=== PATIENT | male | born 1960 | race Native Hawaiian/Other Pacific Islander ===

== ENCOUNTER 2016-07-26 07:59 | Emergency (ER) | payer OTHER ==
[2016-07-26] MEDS ORDERED: BENZONATATE 100 MG CAPSULE PO STA (08:42)
[2016-07-26] MEDS ORDERED: guaiFENesin/DEXTROMETHORPHAN 10 ML UDC PO STA (08:42)
[2016-07-26] MEDS ORDERED: BENZONATATE 100 MG CAPSULE PO ONE (08:46)
== END 2016-07-26 09:25 | disposition home or self-care (01) ==
DX: J11.1 Influenza due to unidentified influenza virus with other respiratory manifestations (principal); E03.9 Hypothyroidism, unspecified
CPT/HCPCS: 71020; 99283; A9270

== ENCOUNTER 2023-09-06 11:55 | Emergency (ER) | payer OTHER ==
[2023-09-06 12:28] LABS: BASOPHILS # (AUTO) 0.1 10^3/uL (0.0-0.1); BASOPHILS % (AUTO) 1.1 %; EOSINOPHILS # (AUTO) 0.2 10^3/uL (0.0-0.7); EOSINOPHILS % (AUTO) 2.6 %; HCT - HEMATOCRIT 46.2 % (42.0-52.0); HGB - HEMOGLOBIN 13.6 g/dL (14.0-18.0); LYMPHOCYTES # (AUTO) 1.8 10^3/uL (1.5-3.5); LYMPHOCYTES % (AUTO) 27.3 %; MEAN CORPUSCULAR HEMOGLOBIN 21.6 pg (27.0-31.0); MEAN CORPUSCULAR HGB CONC 29.4 g/dL (32.0-36.0); MEAN CORPUSCULAR VOLUME 73.3 fL (80.0-94.0); MONOCYTES # (AUTO) 0.7 10^3/uL (0.0-1.0); MONOCYTES % (AUTO) 10.2 %; NEUTROPHILS # (AUTO) 3.8 10^3/uL (1.5-6.6); NEUTROPHILS % (AUTO) 58.3 %; PLT - PLATELET COUNT 245 10^3/uL (130-450); RED CELL DISTRIBUTION WIDTH 17.2 % (12.0-15.0); WHITE BLOOD COUNT 6.5 x10^3/uL (4.8-10.8)
[2023-09-06 12:42] LABS: ALBUMIN 4.5 g/dL (3.2-5.5); ALBUMIN/GLOBULIN RATIO 1.3 (1.0-2.2); BILIRUBIN,TOTAL 0.4 mg/dL (0.2-1.0); CALCIUM 9.5 mg/dL (8.5-10.3); CREATININE 1.5 mg/dL (0.6-1.3); POTASSIUM 3.9 mmol/L (3.5-4.5); TOTAL PROTEIN 7.9 g/dL (6.4-8.9)
[2023-09-06 12:51] LABS: TROPONIN I HIGH SENSITIVITY 2.3 ng/L (2.3-19.7)
--- NOTE | 2023-09-06 12:59 | XRAY Report ---
PROCEDURE: Chest 1V INDICATIONS: Chest pain TECHNIQUE: One view of the chest was acquired. COMPARISON: Chest x-ray 07/26/2016 FINDINGS: Surgical changes and devices: None. Lungs and pleura: No pleural effusions or pneumothorax. Lungs are clear. Mediastinum: Mediastinal contours appear normal. Heart size is normal. Bones and chest wall: No suspicious bony lesions. Overlying soft tissues appear unremarkable. IMPRESSION: No acute cardiopulmonary process. Reviewed by: Palmira Ohara MD on 09/06/2023 12:57 PM [facility] Approved by: Palmira Ohara MD on 09/06/2023 12:57 PM [facility] Station ID: [id number]
--- NOTE | 2023-09-06 13:51 | ED Physician Documentation ---
PD HPI CHEST PAIN - Stated complaint Stated Complaint: TIGHT CHEST,SOA - Chief complaint Chief Complaint: Cardiac - History obtained from History obtained from: Patient, Family - History of Present Illness Pain level max: 0 Pain level now: 0 Quality: Tightness Improved by: Nothing Worsened by: No: Exertion, Inspiration, Eating, Movement, Palpation, Position Associated symptoms: No: Shortness of air, Diaphoresis, Nausea, Vomiting, Feeling faint / dizzy, Palpitations - Additional information Additional information: 63-year-old male presents to the emergency department with chest tightness intermittently over the past 3 days. Diagnosed with COVID 12 days ago. Has minimal residual cough. No fevers. No chills. No cardiac history in the past. The tightness does not change with exertion, inspiration, eating, movement, palpation or position. Nothing makes it better or worse. The tightness is described as across the chest. Nonradiating. Has not had similar symptoms previously. Does not feel short of air, no sweating, no nausea, vomiting, palpitations. No cardiac history. No changes in his medications. No leg swelling. No recent surgeries or immobilizations. Review of Systems Constitutional: denies: Fever, Chills Cardiac: denies: Palpitations Respiratory: denies: Cough GI: denies: Vomiting, Diarrhea PD PAST MEDICAL HISTORY - Past Medical History Past Medical History: Yes Cardiovascular: High cholesterol Respiratory: None Neuro: None Endocrine/Autoimmune: HyPOthyroidism GI: None : None HEENT: None Psych: None Musculoskeletal: None Derm: None - Past Surgical History Past Surgical History: Yes General: Colonoscopy - Present Medications Home Medications: Ambulatory Orders Medication Instructions Recorded Confirmed Levothyroxine [Synthroid] 100 mcg ORAL DAILY 06/15/15 09/06/23 Atorvastatin [Lipitor] 20 mg PO QPM 09/06/23 09/06/23 - Allergies Allergies/Adverse Reactions: Allergies Allergy/AdvReac Type Severity Reaction Status Date / Time No Known Drug Allergies Allergy Verified 09/06/23 12:00 - Social History Does the pt smoke?: No Smoking Status: Never smoker Does the pt drink ETOH?: No Does the pt have substance abuse?: No - Immunizations Immunizations are current?: Yes PD ED PE NORMAL - Vitals Vital signs reviewed: Yes - General General: Alert and oriented X 3, No acute distress - HEENT HEENT: Moist mucous membranes - Neck Neck: Supple, no meningeal sign - Cardiac Cardiac: RRR, Strong equal pulses - Respiratory Respiratory: No respiratory distress, Clear bilaterally - Derm Derm: Warm and dry - Neuro Neuro: Alert and oriented X 3 - Psych Psych: Normal mood, Normal affect Results - Vitals Vitals: Vital Signs - 24 hr 09/06/23 09/06/23 12:01 14:03 Temperature 36.3 C L 36.6 C Heart Rate 64 60 Respiratory 18 16 Rate Blood Pressure 145/91 H 145/88 H O2 Saturation 100 97 Oxygen O2 Source Room air - EKG (time done) 1158 EKG releavant findings:: EKG personally interpreted by author of this note. Relevant findings are: Rate: Rate (enter#) (75) Rhythm: NSR [place]: Normal Intervals: Normal SD QRS: Normal Ischemia: Normal ST segments - Labs Labs: Laboratory Tests 09/06/23 09/06/23 12:24 12:24 WBC 6.5 RBC 6.30 H Hgb 13.6 L Hct 46.2 MCV 73.3 L MCH 21.6 L MCHC 29.4 L RDW 17.2 H Plt Count 245 MPV 10.0 Neut # (Auto) 3.8 Lymph # (Auto) 1.8 Cotton # (Auto) 0.7 Eos # (Auto) 0.2 Baso # (Auto) 0.1 Absolute Nucleated RBC 0.00 Nucleated RBC % 0.0 Sodium 140 Potassium 3.9 Chloride 105 Carbon Dioxide 27 Anion Gap 8.0 BUN 14 Creatinine 1.5 H Estimated GFR (MDRD) 47 L Glucose 94 Calcium 9.5 Total Bilirubin 0.4 AST 16 ALT 17 Alkaline Phosphatase 63 Troponin I High Sens 2.3 Total Protein 7.9 Albumin 4.5 Globulin 3.4 Albumin/Globulin Ratio 1.3 Lipase 52 - Rads (name of study) cxr Relevant Findings:: Final report received, See rad report PD Medical Decision Making - ED course Complexity details: reviewed results, re-evaluated patient, considered differential, d/w patient ED course: 63-year-old male presents to the emergency department with intermittent chest tightness. No significant findings on chest x-ray, EKG, laboratory testing. Negative high sensitive troponin after several days of symptoms. No evidence of acute coronary syndrome. Seems more consistent with chest tightness post- COVID. No wheezing or stridor. Lungs clear to auscultation bilaterally. No evidence of PE. No sharp/pleuritic chest pain. No hypoxia or tachycardia. Patient will follow-up with his PCP for further care. No change with exertion, inspiration, movement. Asymptomatic currently. No arrhythmias on telemetry. Patient counseled regarding signs and symptoms for which I believe and urgent re-evaluation would be necessary. Patient with good understanding of and agreement to plan and is comfortable going home at this time This document was made in part using voice recognition software. While efforts are made to proofread this document, sound alike and grammatical errors may occur. Departure - Departure Disposition: Home, Self Care Clinical Impression: Chest pain Qualifiers: Chest pain type: unspecified Qualified Code(s): R07.9 - Chest pain, unspecified Condition: Good Instructions: ED Chest Pain Atypical Unkn Cause Follow-Up: GEMMA GARCIA DO [Primary Care Provider] - Comments: Your EKG, chest ray, laboratory testing and troponin which is a marker of heart attacks are all negative today. Likely that the chest tightness is residual from COVID. Please follow-up with your doctor for further care. Please return if you worsen. Forms: PCP List Discharge Date/Time: 09/06/23 14:12
[2023-09-06 14:09] VITALS: BP 145/88; O2SAT 97
== END 2023-09-06 14:12 | disposition home or self-care (01) ==
LOC: ED 11:55
DX: R07.9 Chest pain, unspecified (principal); E78.00 Pure hypercholesterolemia, unspecified; E03.9 Hypothyroidism, unspecified; Z79.899 Other long term (current) drug therapy
CPT/HCPCS: 36415; 80053; 83690; 84484; 85025; 93005; 99283; 99284

== ENCOUNTER 2023-09-13 06:52 | Day surgery (SDC) | payer OTHER ==
[2023-09-13] MEDS: LACTATED RINGERS 1,000 ML IV ONE (07:16)
--- NOTE | 2023-09-13 07:38 | ANESTHESIA ---
Pre-Anesthesia VS, & Labs - Diagnosis colonoscopy - Procedure screening Vital Signs: Temp Pulse Resp BP Pulse Ox O2 Flow Rate 36.4 C L 93 16 116/95 H 97 09/13/23 07:10 09/13/23 07:10 09/13/23 07:10 09/13/23 07:10 09/13/23 07:10 Height: 5 ft 10 in Weight (kg): 74.3 kg Body Mass Index: 23.5 BMI Classification: Normal - NPO Other (prep finished at 4:30) Home Medications and Allergies Levothyroxine [Synthroid] 100 mcg ORAL DAILY 06/15/15 Atorvastatin [Lipitor] 20 mg PO QPM 09/06/23 Allergies/Adverse Reactions: Allergies Allergy/AdvReac Type Severity Reaction Status Date / Time No Known Drug Allergies Allergy Verified 09/10/23 13:27 Anes History & Medical History - Anesthetic History Anesthesia Complications: reports: No previous complications - Medical History Cardiovascular: reports: High cholesterol Pulmonary: reports: None Gastrointestinal: reports: None Urinary: reports: Renal insuffiency Neuro: reports: None Musculoskeletal: reports: Gout Endocrine/Autoimmune: reports: HyPOthyroidism Blood Disorders: reports: None Skin: reports: None Smoking Status: Never smoker - Surgical History General: reports: Colonoscopy Exam General: Alert, Oriented x3, Cooperative Dental: WNL Mouth Opening: Greater than 4 Fingerbreadths Neck Mobility: Normal Mallampati classification: I Thyromental Distance: greater than 6 cm Respiratory: Lungs clear Cardiovascular: Regular rate Plan Anesthesia Type: Total IV Consent for Procedure(s) Verified and Reviewed: Yes Code Status: Attempt Resuscitation ASA classification: 2-Mild systemic disease Is this case an emergency?: No
--- NOTE | 2023-09-13 07:41 | ANESTHESIA ---
Pre-Anesthesia VS, & Labs - Diagnosis screening Vital Signs: Temp Pulse Resp BP Pulse Ox O2 Flow Rate 36.4 C L 93 16 116/95 H 97 09/13/23 07:10 09/13/23 07:10 09/13/23 07:10 09/13/23 07:10 09/13/23 07:10 Height: 5 ft 10 in Weight (kg): 74.3 kg Body Mass Index: 23.5 BMI Classification: Normal Home Medications and Allergies Levothyroxine [Synthroid] 100 mcg ORAL DAILY 06/15/15 Atorvastatin [Lipitor] 20 mg PO QPM 09/06/23 Allergies/Adverse Reactions: Allergies Allergy/AdvReac Type Severity Reaction Status Date / Time No Known Drug Allergies Allergy Verified 09/10/23 13:27 Anes History & Medical History - Medical History Cardiovascular: reports: High cholesterol Pulmonary: reports: None Gastrointestinal: reports: None Urinary: reports: Renal insuffiency Neuro: reports: None Musculoskeletal: reports: Gout Endocrine/Autoimmune: reports: HyPOthyroidism Blood Disorders: reports: None Skin: reports: None Smoking Status: Never smoker - Surgical History General: reports: Colonoscopy
[2023-09-13] MEDS ORDERED: PROPOFOL 500 MG/50 ML 500 MG/50 ML VIAL ONE (08:18)
[2023-09-13] MEDS ORDERED: PHENYLEPHRINE HCL 0.5 MG/5 ML AMPULE ONE (08:34)
[2023-09-13] MEDS: LACTATED RINGERS 350 ML IV ONE (08:37)
[2023-09-13 09:42] VITALS: BP 116/84; O2SAT 97
--- NOTE | 2023-09-13 15:17 | ANESTHESIA POST OP EVALUATION ---
Anesthesia Post Eval - Post Anesthesia Eval Vitals: Last Vital Signs Temp 36.2 C L 09/13/23 09:10 Pulse 84 09/13/23 09:10 Resp 16 09/13/23 09:10 BP 116/84 H 09/13/23 09:10 Pulse Ox 97 09/13/23 09:10 O2 Flow Rate CV Function Including HR & BP: Stable Pain Control: Satisfactory Nausea & Vomiting: Negative Mental Status: Baseline Respiratory Status: Airway Patent Hydration Status: Satisfactory Anesthesia Complications: None
== END 2023-09-13 06:53 | disposition home or self-care (01) ==
LOC: SDS 06:52
PROVIDERS: ATTEND Surgery
DX: Z12.11 Encounter for screening for malignant neoplasm of colon (principal); K57.30 Diverticulosis of large intestine without perforation or abscess without bleeding; K64.8 Other hemorrhoids; R01.1 Cardiac murmur, unspecified
CPT/HCPCS: 45378; J2372; J7120

== ENCOUNTER 2023-09-30 08:14 | Outpatient (CLI) | payer OTHER | END 2023-09-30 08:15 | disposition home or self-care (01) | LOC: DI 08:14 | PROVIDERS: ATTEND Family Medicine | DX: R01.1 Cardiac murmur, unspecified (principal); E78.5 Hyperlipidemia, unspecified; I77.810 Thoracic aortic ectasia; R00.1 Bradycardia, unspecified; I51.7 Cardiomegaly | CPT/HCPCS: 93307 ==